=== PATIENT | male | born 1960 | race Caucasian/White ===

== ENCOUNTER → 2022-03-25 | Outpatient (CLI) | payer BC ==
--- NOTE | 2022-03-25 14:39 | MR ---
EXAMINATION TYPE: MR Prostate wo/w con DATE OF EXAM: 03/25/2022 9:06 AM COMPARISON: None . CLINICAL INDICATION:Male, 61 years old with history of R97.20 Elevated PSA; TECHNIQUE: Multi-planar, multi-sequence imaging of the pelvis is performed prior to and following the uncomplicated administration of bolus intravenous gadolinium. CONTRAST: 9 Gadavist Interpretive Criteria: PI-RADS v2.1 SERUM PSA: 4.01 01/26/2022 SURGICAL PATHOLOGY: No data available. FINDINGS: Prostatic dimensions: 5.5 x 7.3 x 4.2 cm. Ellipsoid Volume:88.29 (PSA density=0.05 ng/mL/mL) CENTRAL GLAND (Central and Transition Zones/CZ+TZ): Multiple bilateral, heterogenous appearing hypertrophic stromal nodules, without suspicious lesion. M edian lobe hypertrophy with protrusion into the base of the bladder. (PI-RADS 2) PERIPHERAL ZONE (PZ): Hazy low T2 signal most pronounced in the left peripheral gland, No evidence of masslike abnormality, or localized perfusional hypervascularity, to further suggest a focus of clinically significant pros dueñas cancer. (PI-RADS 2) SEMINAL VESICLES (SV): Diffusely collapse or atrophic, bilaterally. PERIPROSTATIC TISSUES: Unremarkable. LYMPH NODES: No enlarged pelvic lymph node. REMAINING PELVIS: Trabeculated bladder wall likely secondary to chronic bladder outlet obstruction. No abnormal free or organized intrapelvic fluid collection. No pathologic bowel dilation or mural thickening. OSSEOUS STRUCTURES: No suspicious osseous abnormality. IMPRESSION: 1. No specific features for high-risk prostate cancer. Maximum PI-RADS score: 2. 2. Substantial BPH, estimated gland volume 88.29 mL. 3. No suspicious osseous lesion. No lymphadenopathy. No evidence of prostate adenocarcinoma involving the periprostatic tissues.
== END | disposition home or self-care (01) ==
LOC: RADMRIMAIN 07:54
PROVIDERS: ATTEND Urology
DX: N40.0 Benign prostatic hyperplasia without lower urinary tract symptoms (principal)
CPT/HCPCS: 72197; A9585

== ENCOUNTER 2022-07-17 07:13 | Emergency (ER) | payer BC ==
--- NOTE | 2022-07-17 07:30 | ED ---
General Adult HPI - General Chief complaint: Abdominal Pain Stated complaint: Difficulty Urinating Time Seen by Provider: 07/17/22 07:19 Source: patient, family (), RN notes reviewed, old records reviewed Mode of arrival: ambulatory Limitations: no limitations - History of Present Illness Initial comments: 62-year-old male presents emergency room with urinary retention since midnight last night. Attempted a straight cath at home and unsuccessful. Denies any fevers, no nausea vomiting or diarrhea. He has had problem with urinary retention in the past and is seeing Dr. Ramírez, placed on Flomax in May. History of hypertension and enlarged prostate. -: hour(s) (since midnight) Location: pelvis Severity scale (1-10): 7 Quality: constant Consistency: constant Improves with: none Associated Symptoms: other (urinary retention) Treatments Prior to Arrival: other (attempted straight cath) - Related Data Previous Rx's Medication Instructions Recorded Cephalexin [Keflex] 500 mg PO Q12HR 7 Days #14 cap 07/17/22 Allergies Allergy/AdvReac Type Severity Reaction Status Date / Time No Known Allergies Allergy Verified 07/17/22 07:18 Review of Systems ROS Statement: Those systems with pertinent positive or pertinent negative responses have been documented in the HPI. ROS Other: All systems not noted in ROS Statement are negative. Past Medical History Past Medical History: Hyperlipidemia, Hypertension, Prostate Disorder History of Any Multi-Drug Resistant Organisms: None Reported Past Surgical History: No Surgical Hx Reported Past Psychological History: No Psychological Hx Reported Smoking Status: Never smoker Past Alcohol Use History: Occasional Past Drug Use History: None Reported General Exam Limitations: no limitations General appearance: alert, in no apparent distress Head exam: Present: atraumatic Eye exam: Present: normal appearance Respiratory exam: Absent: respiratory distress, accessory muscle use Cardiovascular Exam: Present: tachycardia GI/Abdominal exam: Present: tenderness (suprapubic, bladder distention) exam: Present: vertical testicular lie, circumcision. Absent: testicular tenderness, urethral discharge, scrotal swelling Neurological exam: Present: alert, oriented X3, normal gait Psychiatric exam: Present: normal affect, normal mood Skin exam: Present: warm, dry, normal color. Absent: cyanosis, diaphoretic, petechiae, pallor Course Vital Signs 07/17/22 07/17/22 07/17/22 07:14 08:30 08:57 Temperature 97.5 F L 97.1 F L Pulse Rate 108 H 108 H 98 Respiratory 22 22 18 Rate Blood Pressure 201/125 196/113 164/84 O2 Sat by Pulse 97 95 96 Oximetry - Reevaluation(s) Reevaluation #1: 07/17/22 08:07 Patient reports complete relief of discomfort. Awaiting urinalysis for discharge. Time: 08:07 Medical Decision Making - Medical Decision Making Upon arrival I performed a bladder scan which shows greater than 564 ml urine. Pugh catheter was placed by nursing and urinalysis was sent. Patient reports complete relief of his discomfort after pugh. Urinalysis shows large leukocyte esterase with greater than 182 white blood cells. He denies any flank pain, no nausea vomiting or fevers. He was prescribed Keflex and instructed to follow-up with Dr. Ramírez, his urologist this week. Return to the emergency room with any new or concerning symptoms. He and his are agreeable to this plan of care. Case was discussed with Dr. Dewey. Was pt. sent in by a medical professional or institution? @ -No Did you speak to anyone other than the patient for history? @ -No Did you review nursing and triage notes? @ -Yes I agree Were old charts reviewed? @ -No Differential Diagnosis? @ -Differential Abdominal Pain Men: Appendicitis, UTI, gastroenteritis, incarcerated hernia, bowel obstruction, constipation, inflammatory bowel, testicular torsion, this is not meant to be an all-inclusive list Patient has no right lower quadrant pain after Pugh catheter placed. Denies any nausea vomiting. No evidence of hernia. Denies any testicular pain no evidence of swelling. What testing was considered but not performed? (CT, X-rays, U/S, labs)? Why? @None What meds were considered but not given? Why? @ -None Did you discuss the management of the patient with other professionals? @ -No Did you reconcile home meds? @ -No Was smoking cessation discussed for >3mins.? @ -No Was critical care preformed (if so, how long)? @ -No Were there social determinants of health that impacted care today? How? (Homelessness, low income, unemployed, alcoholism, drug addiction, transportation, low edu. Level, literacy, decrease access to med. care, detention, rehab)? @ -None Was there de-escalation of care discussed even if they declined? (Discuss DNR or withdrawal of care, Hospice)? @ -No What co-morbidities impacted this encounter? (DM, HTN, Smoking, COPD, CAD, Cancer, CVA, Hep., AIDS, mental health diagnosis, sleep apnea, morbid obesity)? @ -Hypertension Was patient admitted / discharged? @ -Discharged Undiagnosed new problem with uncertain prognosis? @ -[none] Drug Therapy requiring intensive monitoring for toxicity (Heparin, Nitro, Insulin, Cardizem)? @ -No Were any procedures done? @ -Bladder scan Diagnosis/symptom? @ -Urinary retention Acute, or Chronic, or Acute on Chronic? @ -Acute Uncomplicated (without systemic symptoms) or Complicated (systemic symptoms)? @ -Uncomplicated Side effects of treatment? @ -[none] Exacerbation, Progression, or Severe Exacerbation] @ -[no] Poses a threat to life or bodily function? @ -[no] - Lab Data Lab Results 07/17/22 Range/Units 07:29 Urine Color Light Yellow Urine Appearance Turbid (Clear) Urine pH 6.0 (5.0-8.0) Ur Specific [place] 1.016 (1.001-1.035) Urine Protein Trace H (Negative) Urine Glucose (UA) Negative (Negative) Urine Ketones Negative (Negative) Urine Blood Moderate H (Negative) Urine Nitrite Positive (Negative) Urine Bilirubin Negative (Negative) Urine Urobilinogen <2.0 (<2.0) mg/dL Ur Leukocyte Esterase Large H (Negative) Urine RBC 19 H (0-5) /hpf Urine WBC >182 H (0-5) /hpf Urine Bacteria Few H (None) /hpf Disposition Clinical Impression: Urinary retention, UTI (urinary tract infection) Disposition: HOME SELF-CARE Condition: Good Instructions (If sedation given, give patient instructions): Urinary Retention in Men (ED), Urinary Tract Infection in Men (ED), Pugh Catheter Placement and Care (ED) Additional Instructions: Follow-up with Dr Ramírez this week. Return to emergency room if any new or concerning symptoms including increased pain, fevers or no drainage from catheter. Prescriptions: Cephalexin [Keflex] 500 mg PO Q12HR 7 Days #14 cap Is patient prescribed a controlled substance at d/c from ED?: No Referrals: Sangeetha Stevens MD [Primary Care Provider] - 1-2 days Dwight Ramírez MD [STAFF PHYSICIAN] - 1-2 days Time of Disposition: 08:18
[2022-07-17 08:03] LABS: Appearance,Urine Turbid (Clear); Bacteria,Urine Few /hpf; Bilirubin,Urine Negative (Negative); Blood,Urine Moderate (Negative); Color,Urine Light Yellow; Glucose,Urine (UA) Negative (Negative); Ketones,Urine Negative (Negative); Leukocyte Esterase,Urine Large (Negative); Nitrite,Urine Positive (Negative); Protein,Urine Trace (Negative); RBC,Urine 19 /hpf (0-5); Specific Gravity,Urine 1.016 (1.001-1.035); Urobilinogen,Urine <2.0 mg/dL (<2.0); WBC,Urine >182 /hpf (0-5)
[2022-07-17] MEDS ORDERED: CEPHALEXIN 500 MG CAP PO STA (08:19)
[2022-07-17 08:58] VITALS: BP 164/84; PULSE 98; RESP 18; TEMP 97.1
== END 2022-07-17 09:05 | disposition home or self-care (01) ==
LOC: EC 07:13
DX: R33.9 Retention of urine, unspecified (principal); N39.0 Urinary tract infection, site not specified; I10 Essential (primary) hypertension
CPT/HCPCS: 51702; 81001; 87077; 87086; 87186; 99284

== ENCOUNTER → 2023-03-08 | Outpatient (CLI) | payer BC | END | disposition home or self-care (01) | LOC: LABWHC1 15:04 | PROVIDERS: ATTEND Urology | DX: R97.20 Elevated prostate specific antigen [PSA] (principal) | CPT/HCPCS: 36415; 84153 ==

== ENCOUNTER → 2024-02-16 | Outpatient (CLI) | payer BC | END | disposition home or self-care (01) | LOC: LABWHC1 11:56 | PROVIDERS: ATTEND Urology | DX: R97.20 Elevated prostate specific antigen [PSA] (principal) | CPT/HCPCS: 36415; 84153 ==